=== PATIENT | male | born 1995 | race Caucasian/White ===

== ENCOUNTER 2018-07-25 08:01 | Emergency (ER) | payer OTHER ==
--- NOTE | 2018-07-25 08:50 | EDM.PDOC ---
ED HPI GENERAL MEDICAL PROBLEM - General Chief Complaint: General Stated Complaint: EAR INFECTION Time Seen by Provider: 07/25/18 08:30 Source of Information: Reports: Patient History Limitations: Reports: No Limitations - History of Present Illness INITIAL COMMENTS - FREE TEXT/NARRATIVE: This is a 23yo M here with right ear pain. He states it started yesterday when he used a Q-tip that he normally does and this am noticed blood on it. He used another Q-tip making sure it doesn't go too deep and noticed blood on the edges. He denies any fever or chills. No allergies. No recent history of ear concerns or infections. He state the pain is mild to moderate. Denies any other issues. Duration: Day(s): Location: Reports: Other (right ear) Quality: Reports: Ache Severity: Moderate Improves with: Reports: None Worsens with: Reports: None - Related Data Allergies Allergy/AdvReac Type Severity Reaction Status Date / Time No Known Allergies Allergy Verified 07/25/18 08:16 ED ROS GENERAL - Review of Systems Review Of Systems: ROS reveals no pertinent complaints other than HPI. ED EXAM, GENERAL - Physical Exam Exam: See Below Exam Limited By: No Limitations General Appearance: Alert, WD/WN, No Apparent Distress Ears: Normal External Exam, Normal Canal, Hearing Grossly Normal, Other (right effusion ) Ear Exam: Right Ear: TM Dull, Left Ear: TM normal, Bilateral Ear: Auricle Normal , Canal Normal Nose: Normal Inspection Throat/Mouth: Normal Inspection Head: Atraumatic, Normocephalic Neck: Normal Inspection Respiratory/Chest: No Respiratory Distress Cardiovascular: Normal Peripheral Pulses Course - Vital Signs Last Recorded V/S: Last Vital Signs Temp 36.7 C 07/25/18 08:24 Pulse 72 07/25/18 08:24 Resp 12 07/25/18 08:24 BP 155/102 H 07/25/18 08:24 Pulse Ox 100 07/25/18 08:24 Departure - Departure Time of Disposition: 08:45 Disposition: Home, Self-Care 01 Condition: Good Clinical Impression: Otitis media, acute serous Qualifiers: Laterality: right Recurrence: not specified as recurrent Qualified Code(s): H65.01 - Acute serous otitis media, right ear - Discharge Information Instructions: Otitis Media, Adult, [id number] Referrals: PCP,None [Primary Care Provider] - Forms: ED Department Discharge Additional Instructions: Take augmentin 1 tablet twice a day for 10 days. Finish all 10 days of antibiotic regimen. May alternate Ibproufen 600mg and tylenol 650mg every 4 hours as needed for pain. Follow up in clinic if symptoms persist or worsen. - Problem List & Annotations (1) Otitis media, acute serous SNOMED Code(s): 574527243 Code(s): H65.00 - ACUTE SEROUS OTITIS MEDIA, UNSPECIFIED EAR Status: Acute Priority: High Current Visit: Yes Qualifiers: Laterality: right Recurrence: not specified as recurrent Qualified Code(s ): H65.01 - Acute serous otitis media, right ear - Problem List Review Problem List Initiated/Reviewed/Updated: Yes - Assessment/Plan Plan: Counseled on supportive care and use of antibiotics. Discussed side effects of antibiotics. Counseled on f/u if symptoms persist. RTC as needed and if any concerns.
[2018-07-25] MEDS ORDERED: Amoxicillin/Clavulanate K 875-125 MG Tab ONE (10:00)
== END 2018-07-25 08:45 | disposition home or self-care (01) ==
LOC: LB.ED 08:01
DX: H65.01 Acute serous otitis media, right ear (principal)
CPT/HCPCS: 99282; A9270-GY